=== PATIENT | female | born 1980 | race Caucasian/White ===

== ENCOUNTER 2022-11-29 12:57 | Emergency (ER) | payer OTHER ==
[2022-11-29 13:07] VITALS: TEMP 98.9; BMI 24.7
[2022-11-29] MEDS ORDERED: IBUPROFEN 400 MG TABLET (FP) PO ONE ×2 (13:15→13:21)
[2022-11-29] MEDS ORDERED: LIDOCAINE 5% TOPICAL PATCH TP ONE (15:00)
[2022-11-29] MEDS ORDERED: LIDOCAINE 5% TOPICAL PATCH ONE (15:23)
[2022-11-29 16:07] LABS: BASO % 0.3 % (0-2.0); EOS % 3.2 % (0-4.5); HEMATOCRIT 36.8 % (32.4-45.2); HEMOGLOBIN 12.5 GM/dL (10.7-15.3); LYMPH % 23.5 % (8-40); MCH 29.5 pg (25.7-33.7); MCHC 33.9 g/dl (32.0-36.0); MEAN PLT VOLUME 8.1 fl (7.5-11.1); MONO % 6.2 % (3.8-10.2); NEUT % 66.8 % (42.8-82.8); PLATELET COUNT 280 10^3/uL (134-434); RBC 4.23 M/mm3 (3.60-5.2); RDW 14.9 % (11.6-15.6); WHITE BLOOD COUNT 7.2 K/mm3 (4.0-10.0)
[2022-11-29 16:22] LABS: POTASSIUM 4.2 mmol/L (3.5-5.1)
[2022-11-29 16:24] LABS: ALBUMIN 3.7 g/dl (3.4-5.0); BLOOD UREA NITROGEN 13.3 mg/dL (7-18); CALCIUM 8.8 mg/dL (8.5-10.1)
[2022-11-29 16:28] LABS: CREATININE 0.5 mg/dL (0.55-1.3); INR 1.09 (0.83-1.09); PROTHROMBIN TIME (PATIENT) 12.6 SEC (9.7-13.0)
[2022-11-29 16:29] LABS: BILIRUBIN,TOTAL 1.1 mg/dL (0.2-1); TOT PROT 7.8 g/dl (6.4-8.2)
[2022-11-29 16:42] VITALS: BP 135/68; PULSE 68; RESP 14
[2022-11-29] MEDS ORDERED: LIDOCAINE PATCH REMOVAL MC SCH (22:00)
== END 2022-11-29 18:53 | disposition home or self-care (01) ==
LOC: JER 12:57
DX: M54.2 Cervicalgia (principal); R42 Dizziness and giddiness; E78.00 Pure hypercholesterolemia, unspecified; M62.838 Other muscle spasm; R06.02 Shortness of breath
CPT/HCPCS: 36415; 71046-TC-FY; 80053; 84484; 84703; 85025; 85610; 85730; 93005; 93010; 99285-25